=== PATIENT | female | born 1940 | race African-American/Black ===

== ENCOUNTER → 2018-12-22 | Outpatient (CLI) | payer OTHER ==
[~2018-12-22] MED LIST: AMLO1CAP5 PO; CEFD300C PO; GABA-585 PO; GLIP-24 PO; GLUC1TAB71 PO; MAGN500C10 PO; METO25TA4 PO; PANT40TA5 PO; POTA20TA4 PO; TRAM50TA PO; VIT1CAPS20 PO
--- NOTE | 2018-12-22 15:20 | RAD ---
EXAM: Renal sonogram. HISTORY: Renal insufficiency. TECHNIQUE: Sonographic imaging of the left kidney and bladder was performed. COMPARISON: None. FINDINGS: The right kidney is surgically absent. There is no suspicious finding within the right nephrectomy bed. The left kidney is not well seen due to patient body habitus. There are suspected left renal cysts measuring 2.3 cm, 1.5 cm and 1.7 cm. There is no left hydronephrosis. The urinary bladder is unremarkable. The post void bladder residual is 7 cc. IMPRESSION: 1. Surgically absent right kidney. 2. Suboptimal evaluation of the left kidney due to body habitus. There are suspected left renal cysts, the largest of which measures 2.3 cm. Electronically signed by: Shannon Ewing MD (12/22/2018 3:17 PM) [facility]
== END | disposition home or self-care (01) ==
LOC: US 13:23
PROVIDERS: ATTEND Internal Medicine Nephrology
DX: N18.3 Chronic kidney disease, stage 3 (moderate) (principal); N28.1 Cyst of kidney, acquired; Z90.5 Acquired absence of kidney
CPT/HCPCS: 76770

== ENCOUNTER → 2019-02-05 | Outpatient (CLI) | payer OTHER ==
[2019-02-05 13:23] LABS: HEMATOCRIT 32.1 % (36.0-47.0); HEMOGLOBIN 10.5 g/dL (12.0-15.5)
[2019-02-05 13:37] LABS: ALBUMIN 3.6 g/dL (3.4-5.0); CALCIUM 9.7 mg/dL (8.5-10.1); GFR 29.2; MAGNESIUM 2.1 mg/dL (1.8-2.4); PHOSPHORUS 4.3 mg/dL (2.6-4.7); POTASSIUM 4.5 mmol/L (3.5-5.1); URIC ACID 7.8 mg/dL (2.6-6.0)
[2019-02-12 01:10] LABS: CALCIUM PTH 9.3 mg/dL (8.7-10.3); CREATININE PTH 1.29 mg/dL (0.57-1.00); PTH INTACT 44 pg/mL (15-65)
== END | disposition home or self-care (01) ==
LOC: LAB 12:14
PROVIDERS: ATTEND Internal Medicine Nephrology
DX: I12.9 Hypertensive chronic kidney disease with stage 1 through stage 4 chronic kidney disease, or unspecified chronic kidney disease (principal); N18.3 Chronic kidney disease, stage 3 (moderate); Z79.84 Long term (current) use of oral hypoglycemic drugs; Z79.2 Long term (current) use of antibiotics; Z79.899 Other long term (current) drug therapy; Z91.010 Allergy to peanuts
CPT/HCPCS: 36415; 80069; 83735; 83970; 84550; 85014; 85018

== ENCOUNTER 2019-02-10 17:10 | Observation (INO) | payer OTHER ==
[~2019-02-10] VITALS: Ht 167.6 cm; Wt 127.5 kg
[~2019-02-10 17:10] MED LIST changes: -CEFD300C PO
--- NOTE | 2019-02-10 17:41 | ED.ADGEN ---
Past History Past Medical History: Arthritis, Cancer, Diabetes, Hypertension, UTI Past Surgical History: Cancer Surgery, Hysterectomy, Oophorectomy Alcohol Use: None Drug Use: None Adult General Chief Complaint Chief Complaint ".. I ve been short of breath all day... my face is puffy... just feel weak all over...It started this morning...." HPI HPI Patient is a 78 year old female who presents with above hx and complaints of shortness of breath with generalized weakness. Patient denies any change in meds. Patient denies any travel or specific ill contacts. Patient normally follows with Dr. Pinzon for her hypertension and diabetes. Patient has significant medical history for metastatic breast cancer 2 center gone mastectomy, chemotherapy and radiation. Patient also has history of right renal cancer with nephrectomy in 2004. Patient denies any prior history of DVT or cardiac disorder. Patient does have a history of elevated lipids and anemia. Patient has not taking in fluids well today and has known renal insufficiency. No recent travel or specific ill contacts. Review of Systems Review of Systems Constitutional: Denies fever or chills [] Eyes: Denies change in visual acuity, redness, or eye pain [] HENT: Denies nasal congestion or sore throat [] Respiratory: Complains of shortness of breath [] Cardiovascular: No additional information not addressed in HPI [] GI: Denies abdominal pain, nausea, vomiting, bloody stools or diarrhea [] : Denies dysuria or hematuria [] Musculoskeletal: Denies back pain or joint pain. Complaints of generalized weakness Integument: Denies rash or skin lesions [] Neurologic: Denies headache, focal weakness or sensory changes [] Endocrine: Denies polyuria or polydipsia [] All other systems were reviewed and found to be within normal limits, except as documented in this note. Family History Family History Diabetes and hypertension Current Medications Current Medications Current Medications Medications (Trade) Dose Ordered Sig/Anup Start Time Stop Time Status Last Admin Dose Admin Albuterol/ Ipratropium (Duoneb) 3 ml 1X ONCE 02/10/19 19:30 02/10/19 19:48 DC 02/10/19 19:24 3 ML Ceftriaxone Sodium 1 gm/ Sodium Chloride 50 ml @ 100 mls/hr 1X ONCE 02/10/19 20:30 02/10/19 20:59 DC 02/10/19 20:51 100 MLS/HR Enoxaparin Sodium (Lovenox 120mg Syringe) 120 mg 1X ONCE 02/10/19 20:30 02/10/19 20:31 DC 02/10/19 20:51 120 MG Iohexol (Omnipaque 350 Mg/ml) 100 ml 1X ONCE 02/10/19 20:30 02/10/19 20:32 DC Lactated Ringer's 1,000 ml @ 100 mls/hr Q10H 02/10/19 17:42 02/11/19 03:41 DC 02/10/19 21:19 100 MLS/HR See nursing for home meds Allergies Allergies Allergies Coded Allergies Type Severity Reaction Last Updated Verified peanut Allergy Intermediate 02/10/19 Yes Physical Exam Physical Exam Constitutional: Moderately acute distress, non-toxic appearance. [] HENT: Normocephalic, atraumatic, bilateral external ears normal, oropharynx moist, no oral exudates, nose normal. [] Eyes: PERRLA, EOMI, conjunctiva normal, no discharge. [] Neck: Normal range of motion, no tenderness, supple, no stridor. [] Cardiovascular: Bradycardia Heart rate regular rhythm, no murmur [], PMI to the left Lungs & Thorax: Bilateral breath sounds equal at apex auscultation [] Abdomen: Bowel sounds normal, soft, no tenderness, no masses, no pulsatile masses. Old surgery scars Skin: Warm, dry, no erythema, no rash. [] Back: No tenderness, no CVA tenderness. [] Extremities: No tenderness, no cyanosis, no clubbing, ROM intact, no edema. [Walks with a cane] Neurologic: Alert and oriented X 3, moves all extremities on request, has distal sensory function, no dose focal deficits noted per patient and daughter Psychologic: Affect anxious, judgement normal, mood normal. [] Current Patient Data Vital Signs Vital Signs Date Time Temp Pulse Resp B/P (MAP) Pulse Ox O2 Delivery O2 Flow Rate FiO2 02/10/19 20:02 62 155/98 (117) 96 02/10/19 19:42 16 Room Air 02/10/19 17:29 97.6 Lab Results Laboratory Tests Test 02/10/19 18:20 02/10/19 18:35 02/10/19 19:10 Urine Collection Type Unknown Urine Color Yellow Urine Clarity Hazy Urine pH 5.5 Urine Specific [place] 1.015 Urine Protein 100 mg/dl (NEG-TRACE) Urine Glucose (UA) Neg mg/dL (NEG) Urine Ketones (Stick) Neg mg/dL (NEG) Urine Blood Trace (NEG) Urine Nitrite Pos (NEG) Urine Bilirubin Neg (NEG) Urine Urobilinogen Dipstick 0.2 mg/dL (0.2 mg/dL) Urine Leukocyte Esterase Trace (NEG) Urine RBC 0 /HPF (0-2) Urine WBC Occ /HPF (0-4) Urine Squamous Epithelial Cells Mod /LPF Urine Bacteria Mod /HPF (0-FEW) Urine Hyaline Casts Occ /HPF Urine Mucus Slight /LPF White Blood Count 8.2 x10^3/uL (4.0-11.0) Red Blood Count 4.08 x10^6/uL (3.50-5.40) Hemoglobin 10.3 g/dL (12.0-15.5) L Hematocrit 31.7 % (36.0-47.0) L Mean Corpuscular Volume 78 fL (79-100) L Mean Corpuscular Hemoglobin 25 pg (25-35) Mean Corpuscular Hemoglobin Concent 33 g/dL (31-37) Red Cell Distribution Width 15.7 % (11.5-14.5) H Platelet Count 216 x10^3/uL (140-400) Neutrophils (%) (Auto) 56 % (31-73) Lymphocytes (%) (Auto) 28 % (24-48) Monocytes (%) (Auto) 9 % (0-9) Eosinophils (%) (Auto) 6 % (0-3) H Basophils (%) (Auto) 1 % (0-3) Neutrophils # (Auto) 4.6 x10^3uL (1.8-7.7) Lymphocytes # (Auto) 2.3 x10^3/uL (1.0-4.8) Monocytes # (Auto) 0.8 x10^3/uL (0.0-1.1) Eosinophils # (Auto) 0.5 x10^3/uL (0.0-0.7) Basophils # (Auto) 0.0 x10^3/uL (0.0-0.2) Sodium Level 142 mmol/L (136-145) Potassium Level 4.5 mmol/L (3.5-5.1) Chloride Level 107 mmol/L (98-107) Carbon Dioxide Level 23 mmol/L (21-32) Anion Gap 12 (6-14) Blood Urea Nitrogen 49 mg/dL (7-20) H Creatinine 1.9 mg/dL (0.6-1.0) H Estimated GFR (Cockcroft-Gault) 30.9 Glucose Level 72 mg/dL (70-99) Calcium Level 9.6 mg/dL (8.5-10.1) Magnesium Level 2.1 mg/dL (1.8-2.4) Total Bilirubin 0.3 mg/dL (0.2-1.0) Direct Bilirubin 0.1 mg/dL (0.0-0.2) Aspartate Amino Transferase (AST) 15 U/L (15-37) Alanine Aminotransferase (ALT) 15 U/L (14-59) Alkaline Phosphatase 74 U/L (46-116) Creatine Kinase 129 U/L (26-192) Troponin I Quantitative < 0.017 ng/mL (0-0.055) BB-Lsg-E-Type Natriuretic Peptide 326 pg/mL (0-449) Total Protein 7.9 g/dL (6.4-8.2) Albumin 3.6 g/dL (3.4-5.0) Lipase 170 U/L (73-393) Prothrombin Time 9.9 SEC (9.4-11.4) Prothrombin Time INR 1.0 (0.9-1.1) PTT 24 SEC (23-33) D-Dimer (Payal) 1.27 mg/L (0.00-0.50) H EKG EKG My interpretation EKG shows a sinus bradycardia at 56 bpm does have leftward axis. An anterior lateral changes. No findings of acute STEMI with contralateral changes. Does have a findings consistent with LVH[] Radiology/Procedures Radiology/Procedures I interpretation CT of head shows no shift, mass, edema, bleed, or fracture. Does have chronic changes. See formal report when available.[] I interpretation of chest x-ray shows borderline cardiac silhouette. Hilar fullness. No large focal findings or consolidations. Similar to other x-rays on file. Course & Med Decision Making Course & Med Decision Making Pertinent Labs and Imaging studies reviewed. (See chart for details) Pt. admitted to Dr. Elizabeth for further eval and Tx. [] Final Impression Final Impression 1. Dyspnea[] 2. Weakness 3. Dehydration Creat /BUN 1.9/49 4. Elevated D-dimer 1.27 5. Anemia 10.3 6. DM 7. HTN 8. UTI 9. Prior Hx. of Metastatic Breast Ca x 2 2005 and 2006 2. Prior Hx. of Renal Cancer with Nephrectomy 2004 Dragon Disclaimer Dragon Disclaimer This electronic medical record was generated, in whole or in part, using a voice recognition dictation system. Discharge Summary Visit Information Final Diagnosis Problems Medical Problems: (1) Dyspnea Status: Acute Brief Hospital Course Allergies Allergies Coded Allergies Type Severity Reaction Last Updated Verified peanut Allergy Intermediate 02/10/19 Yes Vital Signs Vital Signs Date Time Temp Pulse Resp B/P (MAP) Pulse Ox O2 Delivery O2 Flow Rate FiO2 02/10/19 20:02 62 155/98 (117) 96 02/10/19 19:42 16 Room Air 02/10/19 17:29 97.6 Lab Results Laboratory Tests Test 02/10/19 18:20 02/10/19 18:35 02/10/19 19:10 Urine Collection Type Unknown Urine Color Yellow Urine Clarity Hazy Urine pH 5.5 Urine Specific [place] 1.015 Urine Protein 100 mg/dl (NEG-TRACE) Urine Glucose (UA) Neg mg/dL (NEG) Urine Ketones (Stick) Neg mg/dL (NEG) Urine Blood Trace (NEG) Urine Nitrite Pos (NEG) Urine Bilirubin Neg (NEG) Urine Urobilinogen Dipstick 0.2 mg/dL (0.2 mg/dL) Urine Leukocyte Esterase Trace (NEG) Urine RBC 0 /HPF (0-2) Urine WBC Occ /HPF (0-4) Urine Squamous Epithelial Cells Mod /LPF Urine Bacteria Mod /HPF (0-FEW) Urine Hyaline Casts Occ /HPF Urine Mucus Slight /LPF White Blood Count 8.2 x10^3/uL (4.0-11.0) Red Blood Count 4.08 x10^6/uL (3.50-5.40) Hemoglobin 10.3 g/dL (12.0-15.5) Hematocrit 31.7 % (36.0-47.0) Mean Corpuscular Volume 78 fL (79-100) Mean Corpuscular Hemoglobin 25 pg (25-35) Mean Corpuscular Hemoglobin Concent 33 g/dL (31-37) Red Cell Distribution Width 15.7 % (11.5-14.5) Platelet Count 216 x10^3/uL (140-400) Neutrophils (%) (Auto) 56 % (31-73) Lymphocytes (%) (Auto) 28 % (24-48) Monocytes (%) (Auto) 9 % (0-9) Eosinophils (%) (Auto) 6 % (0-3) Basophils (%) (Auto) 1 % (0-3) Neutrophils # (Auto) 4.6 x10^3uL (1.8-7.7) Lymphocytes # (Auto) 2.3 x10^3/uL (1.0-4.8) Monocytes # (Auto) 0.8 x10^3/uL (0.0-1.1) Eosinophils # (Auto) 0.5 x10^3/uL (0.0-0.7) Basophils # (Auto) 0.0 x10^3/uL (0.0-0.2) Sodium Level 142 mmol/L (136-145) Potassium Level 4.5 mmol/L (3.5-5.1) Chloride Level 107 mmol/L (98-107) Carbon Dioxide Level 23 mmol/L (21-32) Anion Gap 12 (6-14) Blood Urea Nitrogen 49 mg/dL (7-20) Creatinine 1.9 mg/dL (0.6-1.0) Estimated GFR (Cockcroft-Gault) 30.9 Glucose Level 72 mg/dL (70-99) Calcium Level 9.6 mg/dL (8.5-10.1) Magnesium Level 2.1 mg/dL (1.8-2.4) Total Bilirubin 0.3 mg/dL (0.2-1.0) Direct Bilirubin 0.1 mg/dL (0.0-0.2) Aspartate Amino Transf (AST/SGOT) 15 U/L (15-37) Alanine Aminotransferase (ALT/SGPT) 15 U/L (14-59) Alkaline Phosphatase 74 U/L (46-116) Creatine Kinase 129 U/L (26-192) Troponin I Quantitative < 0.017 ng/mL (0-0.055) CT-Gze-T-Type Natriuretic Peptide 326 pg/mL (0-449) Total Protein 7.9 g/dL (6.4-8.2) Albumin 3.6 g/dL (3.4-5.0) Lipase 170 U/L (73-393) Prothrombin Time 9.9 SEC (9.4-11.4) Prothromb Time International Ratio 1.0 (0.9-1.1) Activated Partial Thromboplast Time 24 SEC (23-33) D-Dimer (Payal) 1.27 mg/L (0.00-0.50) Brief Hospital Course Ms. Palmer is a 78 old female who presented with dyspnea. Anemia, Dehydration, Elev. D-dimer and hx Breast CA x 2, and Renal CA with Rt nephrectomy Admitted to Dr. Elizabeth for further evaluation and treatment Discharge Information Condition at Discharge: Improved Dischare Medications Current Medications Lactated Ringer's 1,000 ml @ 100 mls/hr Q10H IV Last administered on 02/10/19at 21:19; Admin Dose 100 MLS/HR; Start 02/10/19 at 17:42; Stop 02/11/19 at 03:41; Status DC Albuterol/ Ipratropium (Duoneb) 3 ml 1X ONCE NEB Last administered on 02/10/19at 19:24; Admin Dose 3 ML; Start 02/10/19 at 19:30; Stop 02/10/19 at 19:48; Status DC Ceftriaxone Sodium 1 gm/ Sodium Chloride 50 ml @ 100 mls/hr 1X ONCE IV Last administered on 02/10/19at 20:51; Admin Dose 100 MLS/HR; Start 02/10/19 at 20:30; Stop 02/10/19 at 20:59; Status DC Enoxaparin Sodium (Lovenox 120mg Syringe) 120 mg 1X ONCE SQ Last administered on 02/10/19at 20:51; Admin Dose 120 MG; Start 02/10/19 at 20:30; Stop 02/10/19 at 20:31; Status DC Iohexol (Omnipaque 350 Mg/ml) 100 ml 1X ONCE IV ; Start 02/10/19 at 20:30; Stop 02/10/19 at 20:32; Status DC Active Scripts Active Reported Glycotrol Capsule (Vit B12/Fa/Pyridoxine Hcl/Aa15) 1 Each Capsule 1 Each PO DAILY Osteo Bi-Flex Caplet (Glucosamine/D3/Boswellia Ju) 1 Each Tablet 1 Each PO D AILY Lotrel 5-10 Mg Capsule (Amlodipine Besylate/Benazepril) 1 Each Capsule 1 Each PO DAILY Pantoprazole Sodium 40 Mg Tablet.dr 40 Mg PO DAILY Glipizide Xl (Glipizide) 5 Mg Tab.er.24 2.5 Mg PO DAILY Metoprolol Tartrate 25 Mg Tablet 50 Mg PO DAILY Kellen Disclaimer This chart was dictated in whole or in part using Voice Recognition software in a busy, high-work load, and often noisy Emergency Department environment. It may contain unintended and wholly unrecognized errors or omissions. ISAAC PACK MD February 10, 2019 17:41
[2019-02-10 18:33] LABS: BILIRUBIN,URINE NEG (NEG); CLARITY,URINE HAZY; COLOR,URINE YELLOW; GLUCOSE,URINE NEG (NEG); UROBILINOGEN,URINE 0.2 mg/dL (0.2 mg/dL)
--- NOTE | 2019-02-10 18:33 | RAD ---
CT head without contrast dated 02/10/2019. No comparison available. Clinical data indication: Weakness and numbness in face. TECHNIQUE: Contiguous axial imaging the head was performed from skull base to vertex. No contrast administered. One or more of the following individualized dose reduction techniques were utilized for this examination: 1. Automated exposure control 2. Adjustment of the mA and/or kV according to patient size 3. Use of iterative reconstruction technique FINDINGS: Ventricles and sulci are mildly prominent for age. No midline shift or mass effect. Brain parenchyma is of normal attenuation. No hemorrhage or extra-axial collection. Posterior fossa and brainstem unremarkable. Visualized paranasal sinuses and mastoid air cells are clear. No apparent calvarial abnormality. IMPRESSION: 1. No evidence of acute intracranial hemorrhage or mass. 2. Mild chronic small vessel ischemic changes and atrophy. Electronically signed by: Jesus Manuel Kimball MD (02/10/2019 6:30 PM) [facility]
[2019-02-10 18:34] LABS: BACTERIA,URINE MOD /HPF (0-FEW); HYALINE CASTS, URINE OCC /HPF; NITRITE,URINE POS (NEG); RBC,URINE 0 /HPF (0-2); SQUAMOUS EPITHELIAL CELL,UR MOD /LPF; WBC,URINE OCC /HPF (0-4)
--- NOTE | 2019-02-10 18:40 | RAD ---
Two-view chest dated 02/10/2019. Comparison made to 12/23/2008. CLINICAL INDICATION: Dyspnea and chest pain. FINDINGS: PA and lateral views of the chest were obtained. Heart and mediastinal contours are stable. Prominent perihilar linear markings are unchanged from prior study, likely scar or atelectasis. No pleural effusion or pneumothorax. IMPRESSION: No acute radiographic abnormality. Stable findings compared to 12/23/2008. Electronically signed by: Jesus Manuel Kimball MD (02/10/2019 6:37 PM) [facility]
[2019-02-10] MEDS: IV RINGERS SOLUTION,LACTATED 1,000 ML IV SCH ×3 (18:41→21:19)
[2019-02-10 18:56] LABS: BASO % 1 % (0-3); EOS # 0.5 x10^3/uL (0.0-0.7); EOS % 6 % (0-3); HEMATOCRIT 31.7 % (36.0-47.0); HEMOGLOBIN 10.3 g/dL (12.0-15.5); LYMPH # 2.3 x10^3/uL (1.0-4.8); LYMPH % 28 % (24-48); MEAN CORPUSCULAR HEMOGLOBIN 25 pg (25-35); MEAN CORPUSCULAR HGB CONC 33 g/dL (31-37); MEAN CORPUSCULAR VOLUME 78 fL (79-100); MONO # 0.8 x10^3/uL (0.0-1.1); MONO % 9 % (0-9); NEUT # 4.6 x10^3uL (1.8-7.7); NEUT % 56 % (31-73); PLATELET COUNT 216 x10^3/uL (140-400); RED BLOOD COUNT 4.08 x10^6/uL (3.50-5.40); RED CELL DISTRIBUTION WIDTH 15.7 % (11.5-14.5); WHITE BLOOD COUNT 8.2 x10^3/uL (4.0-11.0)
--- NOTE | 2019-02-10 19:08 | EKG ---
[address] [address] Test Date: 2019-02-10 Test Time: 18:02:21 Pat Name: RAS MUHAMMAD Department: Room: Gender: F Phlebotomy Services Representative: EARL : 1940 Requested By: ISAAC PACK Order Number: [id number] Reading MD: Measurements Intervals [place] Rate: 56 P: -34 CO: 152 QRS: -14 QRSD: 88 T: 24 QT: 460 QTc: 447 Interpretive Statements SINUS RHYTHM LEFTWARD AXIS R-S TRANSITION ZONE IN V LEADS DISPLACED TO THE RIGHT QRS(T) CONTOUR ABNORMALITY CONSIDER ANTEROLATERAL MYOCARDIAL DAMAGE POSSIBLY ABNORMAL ECG RI6.01 No previous ECG available for comparison
[2019-02-10 19:14] LABS: ALBUMIN 3.6 g/dL (3.4-5.0); CALCIUM 9.6 mg/dL (8.5-10.1); CREATININE 1.9 mg/dL (0.6-1.0); DIRECT BILIRUBIN 0.1 mg/dL (0.0-0.2); GFR 30.9; MAGNESIUM 2.1 mg/dL (1.8-2.4); POTASSIUM 4.5 mmol/L (3.5-5.1); TOTAL BILIRUBIN 0.3 mg/dL (0.2-1.0); TOTAL PROTEIN 7.9 g/dL (6.4-8.2)
[2019-02-10] MEDS ORDERED: IPRATRPIUM/ALBUTEROL 0.5/2.5MG 3 ML NEBU. NEB ONE (19:30)
[2019-02-10] MEDS ORDERED: IOHEXOL 350 MG/ML 100 ML VIAL. IV ONE (20:30)
[2019-02-10] MEDS ORDERED: ENOXAPARIN ** NOTE DOSE ** SYRINGE SQ ONE (20:30)
[2019-02-10] MEDS ORDERED: IV NORMAL SALINE 50ML 50 ML ONE (20:39)
[2019-02-10] MEDS ORDERED: cefTRIAXone SODIUM 1 GM VIAL ONE (20:39)
[2019-02-10] MEDS ORDERED: ONDANSETRON PF 4 MG/2 ML VIAL. IV PRN (20:45)
[2019-02-10] MEDS ORDERED: traZODone 50 MG TABLET. PO SCH (21:00)
[2019-02-10] MEDS ORDERED: diphenhydrAMINE HCL 25 MG CAPSULE PO PRN (21:15)
[2019-02-10] MEDS ORDERED: ACETAMINOPHEN 500 MG TABLET PO PRN (21:15)
[2019-02-10] MEDS ORDERED: cloNIDine TTS-2 1 PATCH PATCH TD ONE (21:45)
[2019-02-10 22:20] VITALS: BP 190/92
[2019-02-11] MEDS: IV RINGERS SOLUTION,LACTATED 1,000 ML IV SCH ×2 (03:00→09:15)
[2019-02-11 04:55] VITALS: BP 150/66
--- NOTE | 2019-02-11 08:16 | RAD ---
CT of the chest, abdomen and pelvis without contrast, 01/22/2019: HISTORY: Multiple cancers, right hilar fullness Multidetector imaging was performed without oral or IV contrast as requested. This limits the evaluation. There is mild calcific plaquing of aorta without evidence of aneurysm. There is mitral annular calcification. Minimal coronary artery calcification is present. No mediastinal adenopathy is seen. Evaluation of the edmond is compromised by the lack of IV contrast, however, no hilar mass or adenopathy is evident. There are mild streaky opacities in the lower chest bilaterally compatible with atelectasis and/or scarring. No pleural fluid is evident. The left breast is surgically absent. No axillary or internal mammary adenopathy is evident. The unopacified liver is unremarkable. There is a small rim-like opacity in the gallbladder neck region suggesting a gallstone. The gallbladder stanford are not thickened and there is no pericholecystic edema. The pancreas is unremarkable. The spleen is of normal size. The right kidney is surgically absent. There are at least 4 left renal nodules which are of higher density than the renal parenchyma. The largest of these measures approximately 2.5 cm. While some of these are probably hemorrhagic cysts, a solid renal mass cannot be excluded. There is no evidence of hydronephrosis. The left adrenal gland is unremarkable. Mild aortoiliac calcific plaquing is present. No abdominal or pelvic adenopathy is seen. The uterus is surgically absent. There are scattered colonic diverticula. No paracolonic inflammatory process is seen. The bowel loops are not dilated. No free fluid is evident in the abdomen. Moderate multilevel hypertrophic degenerative changes are present in the spine with bony bridging at multiple levels in the thoracic region. IMPRESSION: 1. Status post right nephrectomy. 2. Multiple high density left renal nodules are probably hemorrhagic cysts, although a solid renal mass cannot be excluded. Renal MR may be useful for further evaluation, if clinically indicated. 3. Colonic diverticulosis. 4. Cholelithiasis. 5. Mild streaky atelectasis and/or scarring in the lung bases. PQRS Compliance Statement: One or more of the following individualized dose reduction techniques were utilized for this examination: 1. Automated exposure control 2. Adjustment of the mA and/or kV according to patient size 3. Use of iterative reconstruction technique Electronically signed by: Joseph Brice MD (02/11/2019 8:13 AM) [facility]
[2019-02-11] MEDS ORDERED: ENOXAPARIN ** NOTE DOSE ** SYRINGE SQ SCH (09:00)
--- NOTE | 2019-02-11 10:49 | RAD ---
V/Q LUNG SCAN CLINICAL INDICATIONS: Dyspnea. Elevated d-dimer. History of multiple cancers. COMPARISON: Chest x-ray dated February 10, 2019. No previous V/Q scan available. COMPARISON: TECHNIQUE: After inhalation of 18 mCi of Xenon 133 gas, anterior and posterior planar images of the lung lobato were performed in the single breath and equilibrium and washout phases. After IV infusion of 5.5 mCi of technetium 99m MAA, multiplanar images of both lung lobato were performed. FINDINGS: There is persistent radiotracer activity within the left lower lung zone which may be seen with air trapping from COPD. Normal physiologic perfusion is seen bilaterally. IMPRESSION: Normal perfusion study. Electronically signed by: Odin Beasley MD (02/11/2019 10:46 AM) [place] [id number]
[2019-02-11 12:00] VITALS: BP 181/77
[2019-02-11 12:16] LABS: BASO % 0 % (0-3); EOS # 0.4 x10^3/uL (0.0-0.7); EOS % 6 % (0-3); HEMATOCRIT 31.9 % (36.0-47.0); HEMOGLOBIN 10.4 g/dL (12.0-15.5); LYMPH # 1.7 x10^3/uL (1.0-4.8); LYMPH % 25 % (24-48); MEAN CORPUSCULAR HEMOGLOBIN 25 pg (25-35); MEAN CORPUSCULAR HGB CONC 33 g/dL (31-37); MEAN CORPUSCULAR VOLUME 78 fL (79-100); MONO # 0.7 x10^3/uL (0.0-1.1); MONO % 11 % (0-9); NEUT % 59 % (31-73); PLATELET COUNT 182 x10^3/uL (140-400); RED CELL DISTRIBUTION WIDTH 15.8 % (11.5-14.5); WHITE BLOOD COUNT 6.8 x10^3/uL (4.0-11.0)
[2019-02-11 12:17] LABS: CALCIUM 9.5 mg/dL (8.5-10.1); CREATININE 1.5 mg/dL (0.6-1.0); GFR 40.6; POTASSIUM 4.7 mmol/L (3.5-5.1)
--- NOTE | 2019-02-11 13:14 | RAD ---
CLINICAL HISTORY: Elevated d-dimer. Bilateral lower leg swelling. COMPARISON: None available. TECHNIQUE: Ultrasound evaluation of the bilateral lower extremities was performed from the groin to the upper calf with roberts scale, spectral and color doppler evaluation. FINDINGS: The bilateral common femoral vein, and femoral vein, including the saphenous-femoral junction are normal in appearance. Color and spectral Doppler evaluation demonstrates normal spontaneous flow, augmentation and phasicity. The bilateral popliteal vein and visualized calf veins also demonstrate normal compressibility and flow. IMPRESSION: No evidence for DVT in the bilateral lower extremity Electronically signed by: Joaquin Sargent MD (02/11/2019 1:11 PM) [id number]
[2019-02-11] MEDS ORDERED: CEFD300C PO (15:21)
--- NOTE | 2019-02-11 17:43 | SSS ---
ADMIT DATE: 02/11/2019 HISTORY OF PRESENT ILLNESS: The patient is a 78-year-old -Prydeinig female patient, who came to the Emergency Room yesterday complaining of being short of breath all day. Her face is puffy, some left-sided facial droop, just felt weak all over. This started yesterday morning. She denied any chest pain, denied any cough, phlegm or hemoptysis. Denied any change in medication. Denied any recent travel, specific ill contact. She follows her primary care physician, Dr. Pinzon for her hypertension, diabetes and Dr. Diego for her kidney disease. She has significant medical history of metastatic breast cancer x 2 for which she underwent mastectomy, chemotherapy and radiation. Also history of right renal cell carcinoma, status post nephrectomy in 2004. However, she has never had any history of DVT or cardiac disorders. She was basically extensively investigated her lab work confirmed that she has chronic kidney disease. Her white cell count was normal. She has microcytic hypochromic anemia. Her D-dimer was high at 1.27. Urinalysis showed that was positive for nitrite. There was only trace of leukocyte. There was no rbc's, occasional wbc's, and moderate amount of bacteria. Given her D-dimer, she had extensive imaging showed that her chest x-ray was essentially unremarkable. She has had CT scan of the chest, abdomen and pelvis without contrast. It was unremarkable and therefore she has had pulmonary ventilation perfusion imaging to rule out possibility of pulmonary emboli, which was negative. Her bilateral lower extremity deep vein thrombosis was negative. PAST MEDICAL HISTORY: Significant for type 2 diabetes mellitus, hypertension, hyperlipidemia, chronic kidney disease, obstructive sleep apnea, chronic back pain and osteoarthritis. PAST SURGICAL HISTORY: Significant for laser photocoagulation, total abdominal hysterectomy, right nephrectomy in 2004, left mastectomy in 2007, had bilateral cataract extraction and she has excision of vulvar lesion x 3, tonsillectomy, esophagogastroduodenoscopy and colonoscopy. ALLERGIES: She has no known drug allergies; however, she is intolerant to LACTOSE and allergic to PEANUTS. MEDICATIONS: She is currently on following medications: She is on metoprolol tartrate 50 mg once a day, amlodipine, besylate/benazepril 5/10 mg once a day, Protonix 40 mg once a day, Glipizide 2.5 mg daily. She is on glucosamine for Osteo Bi-Flex tablets 1 tablet once a day and Glucotrol capsules one capsule daily. FAMILY HISTORY: She has 1 living sister and one living brother who are healthy. Her 2 sisters were , does not know the cause of her . Her brother at the age of 72 because of cancer of the liver. Father at the age of 75 because of sepsis and mother at the age of 71 because of pancreatic cancer. SOCIAL HISTORY: She is , has 2 sons and 1 daughter. She never smoked, does not drink alcohol or use any recreational drugs. 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 REVIEW OF SYSTEMS: The patient denied any blurring of vision, has had bilateral cataract extraction as well as laser photocoagulation, but denied any glaucoma or macular degeneration. Does have also bilateral sensorineural deafness. Denied any nosebleeds, stuffy nose or postnasal drip. Denied any sore throat, sore tongue, toothache, hoarseness of voice or difficulty swallowing. Denied any nausea, vomiting, diarrhea or constipation. Denied any hematemesis, melena or hematochezia. Did complain of dysuria and incontinence. Denied any chest pain, shortness of breath, orthopnea, paroxysmal nocturnal dyspnea. PHYSICAL EXAMINATION: GENERAL: When I examined her, she looked well and was clearly in no apparent respiratory distress. No pallor, jaundice, cyanosis, or thyromegaly. No jugular venous distension. No limb edema. VITAL SIGNS: Her heart rate was 51, blood pressure was 181/77, temperature was 98, respiratory rate 20, and oxygen saturation was 100%. HEAD, EYES, EARS, NOSE, AND THROAT: Showed normocephalic, atraumatic. NECK: Supple. HEART: Showed normal first and second heart sounds. No gallop, rub or murmur. CHEST: Clear to auscultation. No crepitation or rhonchi. ABDOMEN: Distended, soft, nontender. NEUROLOGIC: She is awake, alert, responding appropriately. All cranial nerves intact. She moves extremities without difficulty. LABORATORY DATA: Her lab work showed a white cell count of 8200, hemoglobin 10, hematocrit 31, MCV 78 and platelet count 216,000. Her chemistry showed serum sodium 142, potassium 4.5, chloride 107, bicarbonate 23, anion gap of 12, BUN 49, creatinine 1.9, estimated GFR was 31 mL per minute. Her glucose was 72, calcium was 9.6, magnesium 2.1. Total bilirubin, AST, ALT, alkaline phosphatase were normal. Her total protein was 7.9, albumin 3.6. Lipase was 170. Her TSH was 0.809. Her prothrombin time was 9.9, INR of 1, aPTT was 24 and D-dimer was 1.27. Her urinalysis showed the urine was yellow, hazy with a pH of 5.5, specific gravity of 1.015. She has a moderate amount of protein, negative for glucose, ketones, trace of blood, positive for nitrite, negative for bilirubin, trace of leukocyte esterase, no rbc's, occasional wbc's, and moderate amount of bacteria. Her bilateral lower extremity venous ultrasound negative for deep vein thrombosis. Her pulmonary ventilation perfusion scan showed that there is normal perfusion study. Her CT abdomen, chest and pelvis without contrast showed that the patient is status post right nephrectomy. She has multiple high density left renal nodules that are probably hemorrhagic cyst, although a renal mass cannot be excluded. Renal MRI may be useful for further evaluation if clinically indicated. She has colonic diverticulosis, cholelithiasis, mild streaky atelectasis and/or scarring in the lung bases. ASSESSMENT AND PLAN: The patient remained stable throughout her stay and said that her symptoms have resolved and therefore a decision was made to discharge her back to continue on all her medications and to follow with Dr. Pinzon, her primary care physician and Dr. Diego. Her box nailer, I also provided her the copy of her CT scan of the abdomen to follow up on this dense cyst in her left kidney, given the fact that she has had previous history of renal cell carcinoma. She did receive 1 gram of ceftriaxone for her UTI and given that there is moderate amount of bacteria and positive for nitrite. I will discharge her also on cefdinir 300 mg twice a day for 3 more days. GABE SAUCEDA MD DR: ANDREIA/kishore JOB#: [id number] / [id number]
[2019-02-12] MEDS ORDERED: PANTOPRAZOLE 40 MG TABLET. PO SCH (07:30)
[2019-02-12] MEDS ORDERED: glipiZIDE ER 2.5 MG TAB.ER.24 PO SCH (08:00)
[2019-02-12] MEDS ORDERED: GLUCOSAMINE 500 MG CAPSULE PO SCH (09:00)
[2019-02-12] MEDS ORDERED: LISINOPRIL 10 MG TABLET PO SCH (09:00)
[2019-02-12] MEDS ORDERED: amLODIPine BESYLATE 5 MG TABLET PO SCH (09:00)
[2019-02-12] MEDS ORDERED: MULTIVITAMIN with MINERAL TABLET. PO SCH (09:00)
[2019-02-12] MEDS ORDERED: METOPROLOL TART IMMED RELEASE 25 MG TABLET PO SCH (09:00)
== END 2019-02-11 15:41 | disposition home or self-care (01) ==
LOC: ER 17:10 → 1 SOUTH 20:30 → INTOOBSV 20:30
PROVIDERS: ADMIT Internal Medicine; ATTEND Internal Medicine
DX: R06.02 Shortness of breath (principal); R53.1 Weakness; E86.0 Dehydration; D50.9 Iron deficiency anemia, unspecified; I12.9 Hypertensive chronic kidney disease with stage 1 through stage 4 chronic kidney disease, or unspecified chronic kidney disease; N18.9 Chronic kidney disease, unspecified; C79.9 Secondary malignant neoplasm of unspecified site; E11.22 Type 2 diabetes mellitus with diabetic chronic kidney disease; E78.5 Hyperlipidemia, unspecified; G47.33 Obstructive sleep apnea (adult) (pediatric); Z80.0 Family history of malignant neoplasm of digestive organs; Z82.49 Family history of ischemic heart disease and other diseases of the circulatory system; Z83.3 Family history of diabetes mellitus; Z85.3 Personal history of malignant neoplasm of breast; Z85.528 Personal history of other malignant neoplasm of kidney; Z90.5 Acquired absence of kidney; Z90.12 Acquired absence of left breast and nipple; Z98.41 Cataract extraction status, right eye; Z90.710 Acquired absence of both cervix and uterus; Z98.42 Cataract extraction status, left eye
CPT/HCPCS: 36415; 70450; 71046; 71250; 74176; 78582; 80048; 80061; 80076; 81001; 82550; 82947; 83690; 83735; 83880; 84443; 84484; 85025; 85379; 85610; 85730; 87086; 87186; 93005; 93970; 94640; 96361; 96365; 96372; 99284; A9540; A9558; G0238; G0378; J0696; J1650; J7120; J7620; 96374; G0379; 99285-25

== ENCOUNTER → 2019-04-01 | Outpatient (CLI) | payer OTHER ==
[~2019-04-01] MED LIST changes: +CEFD300C PO
[2019-04-01 15:05] LABS: HEMOGLOBIN 9.9 g/dL (12.0-15.5)
[2019-04-01 15:11] LABS: ALBUMIN 3.4 g/dL (3.4-5.0); CALCIUM 9.2 mg/dL (8.5-10.1); CREATININE 1.8 mg/dL (0.6-1.0); GFR 32.9; MAGNESIUM 1.7 mg/dL (1.8-2.4); POTASSIUM 4.4 mmol/L (3.5-5.1); URIC ACID 7.6 mg/dL (2.6-6.0)
[2019-04-02 08:08] LABS: CALCIUM PTH 9.2 mg/dL (8.7-10.3); CREATININE PTH 1.75 mg/dL (0.57-1.00); PTH INTACT 66 pg/mL (15-65)
== END | disposition home or self-care (01) ==
LOC: LAB 14:23
PROVIDERS: ATTEND Internal Medicine Nephrology
DX: I12.9 Hypertensive chronic kidney disease with stage 1 through stage 4 chronic kidney disease, or unspecified chronic kidney disease (principal); N18.3 Chronic kidney disease, stage 3 (moderate)
CPT/HCPCS: 36415; 80069; 83735; 83970; 84550; 85014; 85018

== ENCOUNTER → 2019-07-30 | Outpatient (CLI) | payer OTHER ==
[2019-07-30 16:07] LABS: HEMATOCRIT 31.5 % (36.0-47.0); HEMOGLOBIN 10.3 g/dL (12.0-15.5)
[2019-07-30 16:31] LABS: ALBUMIN 3.4 g/dL (3.4-5.0); CALCIUM 8.9 mg/dL (8.5-10.1); CREATININE 1.7 mg/dL (0.6-1.0); GFR 35.2; MAGNESIUM 1.9 mg/dL (1.8-2.4); PHOSPHORUS 4.4 mg/dL (2.6-4.7); POTASSIUM 4.5 mmol/L (3.5-5.1); URIC ACID 7.9 mg/dL (2.6-6.0)
[2019-07-31 04:07] LABS: CALCIUM PTH 9.5 mg/dL (8.7-10.3); PTH INTACT 78 pg/mL (15-65)
[2019-07-31 10:50] LABS: CREATININE,RANDOM URINE 75.5 mg/dL (Not Establ.)
== END | disposition home or self-care (01) ==
LOC: LAB 15:34
PROVIDERS: ATTEND Nurse Practitioner Adult Health
DX: E11.21 Type 2 diabetes mellitus with diabetic nephropathy (principal); E11.22 Type 2 diabetes mellitus with diabetic chronic kidney disease; I12.9 Hypertensive chronic kidney disease with stage 1 through stage 4 chronic kidney disease, or unspecified chronic kidney disease; N18.3 Chronic kidney disease, stage 3 (moderate); D63.1 Anemia in chronic kidney disease; R80.9 Proteinuria, unspecified; E87.2 Acidosis; Z90.5 Acquired absence of kidney
CPT/HCPCS: 36415; 80069; 82570; 82728; 83540; 83550; 83735; 83970; 84156; 84550; 85014; 85018

== ENCOUNTER → 2019-10-05 | Outpatient (CLI) | payer MEDICARE ==
--- NOTE | 2019-10-05 13:41 | RAD ---
Examination: 2 views of the left ankle and left foot HISTORY: History of pain COMPARISON: None available. Findings/ impression: The alignment of the ankle mortise grossly appears unremarkable. There is moderate joint space loss identified in the ankle joint and the tarsal joints likely degenerative changes. Small inferior calcaneal enthesophyte identified. Soft tissue swelling identified in the lower leg about the ankle joint. Electronically signed by: Moose Zapata MD (10/05/2019 1:39 PM) [id number]
== END | disposition home or self-care (01) ==
LOC: DXRAD 11:16
PROVIDERS: ATTEND Specialist
DX: M79.89 Other specified soft tissue disorders (principal)
CPT/HCPCS: 73600; 73620

== ENCOUNTER → 2020-05-02 | Outpatient (CLI) | payer MEDICARE ==
[2020-05-02 14:26] LABS: HEMATOCRIT 30.1 % (36.0-47.0); HEMOGLOBIN 9.8 g/dL (12.0-15.5)
[2020-05-02 14:31] LABS: ALBUMIN 3.5 g/dL (3.4-5.0); CALCIUM 9.3 mg/dL (8.5-10.1); GFR 29.1; PHOSPHORUS 3.9 mg/dL (2.6-4.7); POTASSIUM 4.9 mmol/L (3.5-5.1)
[2020-05-03 02:07] LABS: CALCIUM PTH 9.5 mg/dL (8.7-10.3); CREATININE PTH 1.75 mg/dL (0.57-1.00); PTH INTACT 76 pg/mL (15-65)
== END | disposition home or self-care (01) ==
LOC: LAB 13:35
PROVIDERS: ATTEND Nurse Practitioner Adult Health
DX: E11.21 Type 2 diabetes mellitus with diabetic nephropathy (principal); D63.1 Anemia in chronic kidney disease; R80.9 Proteinuria, unspecified; I12.9 Hypertensive chronic kidney disease with stage 1 through stage 4 chronic kidney disease, or unspecified chronic kidney disease; N18.3 Chronic kidney disease, stage 3 (moderate); E11.22 Type 2 diabetes mellitus with diabetic chronic kidney disease; Z90.5 Acquired absence of kidney; Z79.84 Long term (current) use of oral hypoglycemic drugs
CPT/HCPCS: 36415; 80069; 82306; 82728; 83540; 83550; 83970; 85014; 85018

== ENCOUNTER → 2020-10-23 | Outpatient (CLI) | payer MEDICARE ==
[~2020-10-23] MED LIST changes: -PANT40TA5 PO; +PANT40TA6 PO
[2020-10-23 14:03] LABS: ALBUMIN 3.3 g/dL (3.4-5.0); CALCIUM 8.7 mg/dL (8.5-10.1); CREATININE 2.1 mg/dL (0.6-1.0); GFR 27.5; PHOSPHORUS 4.3 mg/dL (2.6-4.7); POTASSIUM 4.4 mmol/L (3.5-5.1)
== END ==
LOC: LAB 12:34
PROVIDERS: ATTEND Nurse Practitioner Family
DX: N18.32 Chronic kidney disease, stage 3b (principal); E55.9 Vitamin D deficiency, unspecified
CPT/HCPCS: 36415; 80069; 82306

== ENCOUNTER → 2021-04-23 | Outpatient (CLI) | payer MEDICARE ==
[2021-04-23 14:54] LABS: HEMATOCRIT 28.5 % (36.0-47.0); HEMOGLOBIN 9.1 g/dL (12.0-15.5)
[2021-04-23 14:57] LABS: ALBUMIN 3.4 g/dL (3.4-5.0); CALCIUM 8.6 mg/dL (8.5-10.1); CREATININE 2.2 mg/dL (0.6-1.0); PHOSPHORUS 4.4 mg/dL (2.6-4.7); POTASSIUM 5.1 mmol/L (3.5-5.1)
[2021-04-23 15:03] LABS: BILIRUBIN,URINE NEG (NEG); CLARITY,URINE CLOUDY; COLOR,URINE YELLOW; GLUCOSE,URINE NEG (NEG); NITRITE,URINE NEG (NEG); UROBILINOGEN,URINE 0.2 mg/dL (0.2 mg/dL)
[2021-04-23 15:05] LABS: BACTERIA,URINE MANY /HPF (0-FEW); WBC,URINE TNTC /HPF (0-4)
== END ==
LOC: LAB 14:11
PROVIDERS: ATTEND Internal Medicine Nephrology
DX: I12.9 Hypertensive chronic kidney disease with stage 1 through stage 4 chronic kidney disease, or unspecified chronic kidney disease (principal); N18.32 Chronic kidney disease, stage 3b; E11.21 Type 2 diabetes mellitus with diabetic nephropathy; E11.22 Type 2 diabetes mellitus with diabetic chronic kidney disease; R80.9 Proteinuria, unspecified; D63.1 Anemia in chronic kidney disease; E55.9 Vitamin D deficiency, unspecified; E66.9 Obesity, unspecified; N28.1 Cyst of kidney, acquired; Z79.84 Long term (current) use of oral hypoglycemic drugs; Z90.5 Acquired absence of kidney
CPT/HCPCS: 36415; 80069; 81001; 85014; 85018; 87086

== ENCOUNTER → 2021-11-13 | Outpatient (CLI) | payer MEDICARE ==
[~2021-11-13] MED LIST changes: +POTA-121 PO; -POTA20TA4 PO
[2021-11-13 13:02] LABS: HEMATOCRIT 27.6 % (36.0-47.0); HEMOGLOBIN 8.9 g/dL (12.0-15.5)
[2021-11-13 13:07] LABS: ALBUMIN 3.4 g/dL (3.4-5.0); CALCIUM 8.8 mg/dL (8.5-10.1); CREATININE 2.3 mg/dL (0.6-1.0); GFR 24.7; PHOSPHORUS 4.4 mg/dL (2.6-4.7)
[2021-11-14 17:02] LABS: BACTERIA,URINE MANY /HPF (0-FEW); CLARITY,URINE CLOUDY; COLOR,URINE YELLOW; GLUCOSE,URINE NEG (NEG); NITRITE,URINE NEG (NEG); SQUAMOUS EPITHELIAL CELL,UR FEW /LPF; UROBILINOGEN,URINE 0.2 mg/dL (0.2 mg/dL)
[2021-11-15 10:08] LABS: CALCIUM PTH 9.4 mg/dL (8.7-10.3); CREATININE PTH 2.18 mg/dL (0.57-1.00); PTH INTACT 83 pg/mL (15-65)
== END ==
LOC: LAB 11:39
PROVIDERS: ATTEND Internal Medicine Nephrology
DX: I12.9 Hypertensive chronic kidney disease with stage 1 through stage 4 chronic kidney disease, or unspecified chronic kidney disease (principal); E11.21 Type 2 diabetes mellitus with diabetic nephropathy; E11.22 Type 2 diabetes mellitus with diabetic chronic kidney disease; N18.32 Chronic kidney disease, stage 3b; N28.1 Cyst of kidney, acquired; R80.9 Proteinuria, unspecified; E55.9 Vitamin D deficiency, unspecified; D63.1 Anemia in chronic kidney disease; E66.9 Obesity, unspecified; Z79.84 Long term (current) use of oral hypoglycemic drugs; Z90.5 Acquired absence of kidney
CPT/HCPCS: 36415; 80069; 81001; 83970; 85014; 85018

== ENCOUNTER → 2022-01-23 | Outpatient (CLI) | payer MEDICARE ==
[~2022-01-23] MED LIST changes: +MAGN500C PO; -MAGN500C10 PO
[2022-01-23 16:42] LABS: ALBUMIN 3.2 g/dL (3.4-5.0); CREATININE 2.3 mg/dL (0.6-1.0); GFR 24.6; PHOSPHORUS 4.2 mg/dL (2.6-4.7); POTASSIUM 4.9 mmol/L (3.5-5.1)
== END ==
LOC: LAB 15:09
PROVIDERS: ATTEND Internal Medicine Nephrology
DX: I12.9 Hypertensive chronic kidney disease with stage 1 through stage 4 chronic kidney disease, or unspecified chronic kidney disease (principal); E11.22 Type 2 diabetes mellitus with diabetic chronic kidney disease; N18.4 Chronic kidney disease, stage 4 (severe); E11.21 Type 2 diabetes mellitus with diabetic nephropathy; N28.1 Cyst of kidney, acquired; D63.1 Anemia in chronic kidney disease; R80.9 Proteinuria, unspecified; E55.9 Vitamin D deficiency, unspecified; E66.9 Obesity, unspecified; N39.0 Urinary tract infection, site not specified; Z68.41 Body mass index [BMI] 40.0-44.9, adult; Z90.5 Acquired absence of kidney; Z79.84 Long term (current) use of oral hypoglycemic drugs
CPT/HCPCS: 36415; 80069